=== PATIENT | male | born 1970 | race Caucasian/White ===

== ENCOUNTER 2017-01-13 14:07 | Emergency (ER) | payer SELFPAY ==
--- NOTE | ~2017-01-13 | CT4 ---
[facility] A Service of [facility] RADIOLOGY TEXT RESULTS PATIENT: TOD SUERO LOCATION: [facility] : 74 UNIT #: [id number] AGE: [address]: Bharat Martínez MD SEX: M ORDER DR: [id number] [facility] [address] [place], [place] [address] [id number] MR#: [id number] Acc #: [id number] NAME: TOD SUERO. : 1970 SEX: M STUDY DATE/TIME: 01/13/2017 18:05 UNIT: [facility] ROOM: STUDY DESCRIPTION: CT Abd and Pelv Wo Cont Attending Physician: Bharat Martínez M.D. Ordering Physician: Bharat Martínez M.D. Primary Care Physician: Juanito Landaverde M.D. MEDICAL IMAGING REPORT This report is preliminary unless electronic signature is present EXAM CT abdomen and pelvis INDICATIONS Inability to urinate. History of renal calculi. TECHNIQUE CT abdomen and pelvis without contrast. Coronal and sagittal reconstructions were obtained. This CT exam was performed with one or more of the following radiation dose reduction techniques: automatic control, adjustment of mA and/or kV according to patient size, and iterative reconstruction. COMPARISON CT abdomen and pelvis dated 12/25/2012. FINDINGS There is some mild atelectasis in both lung bases. There are 3 nonobstructing calculi in the right kidney. These measure up to 3 mm. There is some mild stranding associated with the right kidney. There is also some mild right renal edema. No hydronephrosis or ureteral calculi. This can be seen in the setting of a recently passed stone. No hydronephrosis. No left renal calculi. Noncontrast evaluation of the remaining solid abdominal organs are within normal limits. Gallbladder is not distended. The bowel is not dilated. The appendix is normal. The abdominal aorta is normal in caliber. PELVIS: Jama catheter decompresses the bladder. There is some mild inflammatory stranding surrounding the prostate and seminal vesicles. The prostate is enlarged. No enlarged pelvic or inguinal lymph nodes. [facility] A Service of [facility] RADIOLOGY TEXT RESULTS PATIENT: TOD SUERO [id number] : 74 UNIT #: [id number] AGE: [address]: Bharat Martínez MD SEX: M ORDER DR: No acute osseous abnormalities. IMPRESSION 1. Mild right renal edema. No hydronephrosis or ureteral calculi. The findings is nonspecific however can be seen in the setting of either recently passed stone or an ascending urinary tract infection. I suspect this is due to a urinary tract infection. 2. Right nephrolithiasis. 3. Mild stranding associated with the prostate and seminal vesicles as well as the bladder. This finding suggests a lower urinary tract infection. Dictated by... Remigio Villalobos M.D. THIS IS AN ELECTRONICALLY VERIFIED REPORT Remigio Villalobos M.D. at 01/14/2017 10:26 PM NOY/sathish TD: 01/13/2017 18:58 JOB #: [id number] MEDICAL IMAGING REPORT Page 1 of 1 COPY
[~2017-01-13 14:07] MED LIST: FLOMAX0.4 M1 PO; LEXAPRO PO; LORTAB 5/500 TA1 TA2 PO; NO MEDICATIONS; PREVACID PO
[2017-01-13 16:29] LABS: BASOPHIL# 0.1 X10e3 (0-0.3); BASOPHIL% 0.6 % (0-2.5); EOSINOPHIL% 0.1 % (0.0-7.0); HEMATOCRIT 46.2 % (38.0-50.0); LYMPHOCYTE# 0.4 X10e3 (1.0-3.5); LYMPHOCYTE% 1.9 % (17.0-45.0); MEAN CELL VOLUME 90.2 FL (83-96); MEAN CORPUSCULAR HEMOGLOBIN 29.3 PG (28-34); MEAN CORPUSCULAR HGB CONC 32.5 g/dL (30-36); MEAN PLATELET VOLUME 9.9 FL (6.5-11.5); MONOCYTE# 0.8 X10e3 (0-1.0); MONOCYTE% 3.4 % (3.0-12.0); NEUTROPHIL# 21.3 X10e3 (1.5-7.1); PLATELET COUNT 122 X10e3 (140-420); RED BLOOD COUNT 5.13 X10e (3.90-5.60); RED CELL DISTRIBUTION WIDTH 14.6 % (11.0-15.5); WHITE BLOOD COUNT 22.7 X10e3 (4.0-10.5)
[2017-01-13 16:30] LABS: URINE SOURCE CLEAN CATCH
[2017-01-13 16:30] LABS: DIFF IND YES
[2017-01-13 16:42] LABS: URINE APPEARANCE CLOUDY; URINE BILIRUBIN NEG (NEG); URINE BLOOD 1+ (NEG); URINE COLOR YELLOW; URINE GLUCOSE NEG (NEG); URINE KETONE TRACE (NEG); URINE LEUKOCYTE ESTERASE 2+ (NEG); URINE NITRATE POS (NEG); URINE PROTEIN 1+ (NEG)
[2017-01-13 16:45] LABS: URINE BACTERIA AUWI 4+ (NEGATIVE); URINE SQUAMOUS EPITHELIAL CELL NONE SEEN /[HPF]; UWBCS1 AUWI 50-100 (0-5)
[2017-01-13 16:58] LABS: PLATELET ESTIMATE DECREASED (NORMAL)
[2017-01-13 17:00] LABS: BUN/CREATININE RATIO 15.55; CALCIUM SERUM 8.5 mg/dL (8.4-10.2); CREATININE SERUM 0.9 mg/dL (0.6-1.4); GLOM FILT RATE Estimated 103.5 mL/min (>60); POTASSIUM 3.6 mmol/L (3.5-5.1)
== END 2017-01-13 20:20 | disposition home or self-care (01) ==
LOC: CED 14:07
PROVIDERS: Emergency Medicine
DX: N10 Acute pyelonephritis (principal)
CPT/HCPCS: 36415; 51702; 74176; 80048; 81003; 85025; 96361; 96374; 96375; 99284; J0696; J1885; J2270